=== PATIENT | female | born 1950 | race Two or more races ===

== ENCOUNTER 2019-07-06 22:05 | Emergency (ER) | payer MEDICARE, OTHER ==
[~2019-07-06] VITALS: Ht 160 cm; Wt 70.4 kg
[2019-07-07 00:04] VITALS: BP 137/94
== END 2019-07-07 00:04 | disposition home or self-care (01) ==
LOC: ED 22:05
DX: S01.111A Laceration without foreign body of right eyelid and periocular area, initial encounter (principal); S20.211A Contusion of right front wall of thorax, initial encounter; S80.01XA Contusion of right knee, initial encounter; E78.00 Pure hypercholesterolemia, unspecified; W01.198A Fall on same level from slipping, tripping and stumbling with subsequent striking against other object, initial encounter; Y93.89 Activity, other specified; Y92.89 Other specified places as the place of occurrence of the external cause; Y99.8 Other external cause status
CPT/HCPCS: Q0092